=== PATIENT | female | born 1950 | race Caucasian/White ===

== ENCOUNTER 2017-09-04 17:04 | Inpatient (IN) ==
[2017-09-04] MEDS ORDERED: SODIUM CHLORIDE 0.9% 500 ML IV STA (17:41)
[2017-09-04] MEDS ORDERED: ALBUTEROL/IPRATROPIUM 3 ML NEB RESP TX STA (17:41)
[2017-09-04 17:58] LABS: INR 1.4; Partial Thromboplastin Time 35.2 SECS (0-40)
[2017-09-04 18:03] LABS: Basophils % 0.1 % (0.0-0.8); Eosinophils % 0.2 % (0.00-10.9); Hematocrit 19.3 VOL% (35.7-47.0); Hemoglobin 7.1 GM/DL (12.0-16.0); Immature Granulocytes % 0.8 %; Lymphocytes # 2.3 10*3/uL (1.4-4.0); Lymphocytes % 8.8 % (21.3-54.2); Mean Corpuscular HGB Conc 36.8 GM/DL (32-36); Mean Corpuscular Hemoglobin 35 PG (27-34); Mean Platelet Volume 12.9 FL (9.6-12.0); Monocytes # 1.4 10*3/uL (0.11-0.8); Monocytes % 5.3 % (1.7-12.7); NRBC # 0.03 10*3/uL; Neutrophils # 21.9 10*3/uL (1.4-7.4); Neutrophils % 84.8 % (38.7-73.9); Platelet Count 203 T/CUMM (130-400); Red Blood Count 2.01 MC/CUMM (3.8-5.5); Red Cell Distribution Width 22.7 % (9.3-17.3); White Blood Count 25.8 T/CUMM (4-12)
[2017-09-04] MEDS ORDERED: cefTRIAXone 1,000 MG in SODIUM CHLORIDE 0.9% 100 ML IV STA (18:04)
[2017-09-04 18:06] LABS: Ammonia 68 UMOL/L (11-32)
[2017-09-04 18:10] LABS: Lactic Acid 2.8 MMOL/L (0.4-2.0)
[2017-09-04 18:13] LABS: Alanine Aminotransferase 38 U/L (13-56); Albumin 1.6 G/DL (3.4-5.0); Alkaline Phosphatase 235 U/L (45-117); Aspartate Amino Transferase 235 U/L (0-37); Blood Urea Nitrogen 32 MG/DL (7-18); Calcium 7.6 MG/DL (8.5-10.1); Osmolality,Calculated 279.5 MOS/KG (273-304); Potassium 4.1 MMOL/L (3.5-5.1); Sodium 139 MMOL/L (136-145); Total Protein 5.6 G/DL (6.4-8.3)
[2017-09-04 18:16] LABS: ABG Base Excess 6.1 MMOL/L (-2.5-2.5); ABG HCO3 29.9 MMOL/L (20-26); ABG Oxygen Saturation 97.3 % (95-100); ABG PCO2 35.6 MM HG (35-48); ABG PO2 96.8 MM HG (80-95); ABG TCO2 26.1 MMOL/L (23-27)
[2017-09-04 18:20] LABS: Glucose 35 MG/DL (74-106)
[2017-09-04] MEDS ORDERED: DEXTROSE 50% 25 GM/50 ML VIAL IV STA (18:20)
[2017-09-04] MEDS ORDERED: DEXTROSE 50% 25 GM/50 ML SYRINGE IV ONE (18:21)
[2017-09-04] MEDS ORDERED: ACETAMINOPHEN 325 MG TABLET PO PRN (19:02)
[2017-09-04] MEDS ORDERED: ONDANSETRON 4 MG/2 ML VIAL IV PRN (19:02)
[2017-09-04] MEDS ORDERED: SODIUM CHLORIDE 0.9% 2,000 ML IV ONE (19:05)
[2017-09-04] MEDS ORDERED: BISACODYL 10 MG SUPP RECTAL STA (19:06)
[2017-09-04] MEDS ORDERED: GLUCAGON 1 MG VIAL IM PRN (19:06)
[2017-09-04 19:12] LABS: Band Neutrophils 1 % (0-10); Eosinophils 1 % (0-10); Lymphocytes 4 % (20-55); Platelet Estimate Normal; Segmented Neutrophils 89 % (50-85); Total Cells Counted 100
[2017-09-04 19:13] LABS: Acanthocytes Few; Anisocytosis 2+; Hypochromasia 2+; Macrocytosis 2+; Ovalocytes 1+; Target Cells 2+
[2017-09-04] MEDS ORDERED: AZTREONAM 1,000 MG VIAL ONE (21:53)
[2017-09-04] MEDS ORDERED: LEVOFLOXACIN INJ 150 ML IV ONE (21:53)
[2017-09-04] MEDS ORDERED: LEVOFLOXACIN INJ 750 MG in PREMIX 1 EACH IV ONE (22:00)
[2017-09-04] MEDS ORDERED: SODIUM CHLORIDE 0.9% IV SCH (22:15)
[2017-09-04] MEDS ORDERED: AZTREONAM IV SCH (22:15)
[2017-09-04] MEDS ORDERED: NOREPINEPHRINE 4 MG/4 ML VIAL IV ONE (23:53)
[2017-09-04] MEDS: NOREPINEPHRINE 8 MG in SODIUM CHLORIDE 0.9% 242 ML IV PRN (23:58)
[2017-09-05 00:05] LABS: Apearance,Urine CLOUDY (Clear); Bilirubin,Urine Negative (Negative); Blood, Urine Small mg/dL (Negative); Glucose,Urine (UA) Negative (Negative); Ketones,Urine Negative (Negative); Nitrite,Urine Negative (Negative); Protein,Urine 100 MG/DL; Squamous Epithelial Cell,Urine Few /HPF (0-10); Urine Color Yellow (Yellow); Urine Specific Gravity 1.013 (1.001-1.035); Urine Urobilinogen < 2.0 EU/DL (0.2-1.0); WBC,Urine 1855 /HPF (0-6)
[2017-09-05] MEDS: DEXTROSE 50% 25 GM/50 ML VIAL IV PRN ×5 (00:12→19:09)
[2017-09-05] MEDS ORDERED: PHENYLEPHRINE DRIP 40 MG/250 ML PREMIX IV ONE (03:36)
[2017-09-05] MEDS: PHENYLEPHRINE DRIP 40 MG/250 ML PREMIX IV PRN ×5 (03:44→23:28)
[2017-09-05] MEDS ORDERED: AZTREONAM 1,000 MG in SYRINGE 1 EACH IV SCH (06:00)
[2017-09-05 06:01] LABS: Basophils % 0.2 % (0.0-0.8); Eosinophils # 0.1 10*3/uL (0.0-0.87); Eosinophils % 0.4 % (0.00-10.9); Hematocrit 23.6 VOL% (35.7-47.0); Hemoglobin 8.4 GM/DL (12.0-16.0); Immature Granulocytes % 1.2 %; Immature Granulocytes Absolute 0.27 #; Lymphocytes # 1.9 10*3/uL (1.4-4.0); Lymphocytes % 7.9 % (21.3-54.2); Mean Corpuscular HGB Conc 35.6 GM/DL (32-36); Mean Corpuscular Hemoglobin 35 PG (27-34); Mean Corpuscular Volume 97.9 FL (87-102); Mean Platelet Volume 12.5 FL (9.6-12.0); Monocytes # 1.2 10*3/uL (0.11-0.8); Monocytes % 5.1 % (1.7-12.7); NRBC # 0.02 10*3/uL; Neutrophils % 85.2 % (38.7-73.9); Platelet Count 159 T/CUMM (130-400); Red Blood Count 2.41 MC/CUMM (3.8-5.5); Red Cell Distribution Width 22.5 % (9.3-17.3); White Blood Count 23.4 T/CUMM (4-12)
[2017-09-05 06:32] LABS: Band Neutrophils 19 % (0-10); Eosinophils 2 % (0-10); Lymphocytes 8 % (20-55); Nucleated Red Blood Cells 1 (0-5); Segmented Neutrophils 67 % (50-85); Total Cells Counted 100
[2017-09-05 06:33] LABS: Anisocytosis 2+; Poikilocytosis 2+; Target Cells 3+
[2017-09-05 06:34] LABS: Polychromasia 1+
[2017-09-05 06:36] LABS: Albumin 1.5 G/DL (3.4-5.0); Calcium 7.5 MG/DL (8.5-10.1); Osmolality,Calculated 284.4 MOS/KG (273-304); Potassium 3.4 MMOL/L (3.5-5.1); Total Protein 5.6 G/DL (6.4-8.3)
[2017-09-05] MEDS: NOREPINEPHRINE 8 MG in SODIUM CHLORIDE 0.9% 242 ML IV PRN ×3 (06:36→14:26)
[2017-09-05] MEDS: ENOXAPARIN 30 MG/0.3 ML SYRINGE SUBCUT SCH (09:33)
[2017-09-05] MEDS: DEXAMETHASONE 4 MG/1 ML VIAL IV SCH ×2 (10:40→20:37)
[2017-09-05] MEDS: LEVOTHYROXINE 75 MCG TABLET PO SCH (10:53)
[2017-09-05] MEDS: LEVOTHYROXINE 200 MCG TABLET PO SCH (10:53)
[2017-09-05] MEDS ORDERED: SODIUM CHLORIDE 0.9% 1,000 ML IV PRN (11:38)
[2017-09-05] MEDS: PANTOPRAZOLE 40 MG TABLET PO SCH (14:02)
[2017-09-05] MEDS: LIOTHYRONINE 25 MCG TABLET PO SCH (14:02)
[2017-09-05] MEDS: MEROPENEM 500 MG in SYRINGE 1 EACH IV SCH (18:19)
[2017-09-05] MEDS: NOREPINEPHRINE 16 MG in SODIUM CHLORIDE 0.9% 234 ML IV PRN (18:56)
[2017-09-05] MEDS: MIDODRINE 5 MG TABLET PO SCH ×2 (18:59→20:38)
[2017-09-05] MEDS: ATORVASTATIN 20 MG TABLET PO SCH (20:38)
[2017-09-06] MEDS: DEXTROSE 50% 25 GM/50 ML VIAL IV PRN ×2 (00:18→04:26)
[2017-09-06] MEDS: NOREPINEPHRINE 16 MG in SODIUM CHLORIDE 0.9% 234 ML IV PRN ×4 (01:15→23:56)
[2017-09-06] MEDS: PHENYLEPHRINE INJ 160 MG in SODIUM CHLORIDE 0.9% 234 ML IV PRN ×2 (02:44→17:37)
[2017-09-06] MEDS ORDERED: COSYNTROPIN 0.25 MG VIAL IV ONE (03:00)
[2017-09-06 04:01] LABS: Basophils % 0.1 % (0.0-0.8); Hematocrit 29.2 VOL% (35.7-47.0); Hemoglobin 10.3 GM/DL (12.0-16.0); Immature Granulocytes % 0.9 %; Immature Granulocytes Absolute 0.18 #; Lymphocytes # 1.3 10*3/uL (1.4-4.0); Lymphocytes % 5.9 % (21.3-54.2); Mean Corpuscular HGB Conc 35.3 GM/DL (32-36); Mean Corpuscular Hemoglobin 33 PG (27-34); Mean Corpuscular Volume 94.2 FL (87-102); Mean Platelet Volume 12.8 FL (9.6-12.0); Monocytes # 1.3 10*3/uL (0.11-0.8); Monocytes % 6.3 % (1.7-12.7); NRBC # 0.04 10*3/uL; Neutrophils # 18.3 10*3/uL (1.4-7.4); Neutrophils % 86.8 % (38.7-73.9); Platelet Count 140 T/CUMM (130-400); Red Cell Distribution Width 21.5 % (9.3-17.3); White Blood Count 21.1 T/CUMM (4-12)
[2017-09-06] MEDS: DEXAMETHASONE 4 MG/1 ML VIAL IV SCH ×3 (04:24→19:09)
[2017-09-06 04:34] LABS: Calcium 7.5 MG/DL (8.5-10.1); Osmolality,Calculated 276.5 MOS/KG (273-304); Potassium 3.3 MMOL/L (3.5-5.1)
[2017-09-06 05:40] LABS: Lymphocytes 7 % (20-55); Platelet Estimate Normal; Segmented Neutrophils 90 % (50-85); Total Cells Counted 100
[2017-09-06] MEDS: LEVOTHYROXINE 200 MCG TABLET PO SCH (06:23)
[2017-09-06] MEDS ORDERED: SODIUM CHLORIDE 0.9% 500 ML IV ONE (09:05)
[2017-09-06] MEDS: LIOTHYRONINE 25 MCG TABLET PO SCH (09:14)
[2017-09-06] MEDS: CITALOPRAM 20 MG TABLET PO SCH (09:14)
[2017-09-06] MEDS: MIDODRINE 5 MG TABLET PO SCH ×3 (09:14→20:13)
[2017-09-06] MEDS: PANTOPRAZOLE 40 MG TABLET PO SCH (09:15)
[2017-09-06] MEDS: ENOXAPARIN 30 MG/0.3 ML SYRINGE SUBCUT SCH (09:15)
[2017-09-06] MEDS: LEVOTHYROXINE 75 MCG TABLET PO SCH (09:15)
[2017-09-06] MEDS: MEROPENEM 500 MG in SYRINGE 1 EACH IV SCH (11:56)
[2017-09-06] MEDS: ATORVASTATIN 20 MG TABLET PO SCH (20:13)
[2017-09-06] MEDS: LEVOFLOXACIN INJ 500 MG in PREMIX 1 EACH IV SCH (20:13)
[2017-09-07] MEDS: DEXAMETHASONE 4 MG/1 ML VIAL IV SCH ×3 (01:48→18:47)
[2017-09-07] MEDS: LEVOTHYROXINE 75 MCG TABLET PO SCH (06:03)
[2017-09-07] MEDS: LEVOTHYROXINE 200 MCG TABLET PO SCH (06:04)
[2017-09-07] MEDS: NOREPINEPHRINE 16 MG in SODIUM CHLORIDE 0.9% 234 ML IV PRN ×3 (06:50→20:34)
[2017-09-07] MEDS: DEXTROSE 10% 1,000 ML IV SCH ×4 (08:52→22:46)
[2017-09-07 09:10] LABS: Basophils % 0.1 % (0.0-0.8); Hematocrit 28.5 VOL% (35.7-47.0); Immature Granulocytes % 0.6 %; Immature Granulocytes Absolute 0.12 #; Lymphocytes # 0.8 10*3/uL (1.4-4.0); Lymphocytes % 4.1 % (21.3-54.2); Mean Corpuscular HGB Conc 35.1 GM/DL (32-36); Mean Corpuscular Hemoglobin 33 PG (27-34); Mean Corpuscular Volume 93.8 FL (87-102); Mean Platelet Volume 12.8 FL (9.6-12.0); Monocytes # 0.9 10*3/uL (0.11-0.8); Monocytes % 4.9 % (1.7-12.7); NRBC # 0.03 10*3/uL; Neutrophils # 17.1 10*3/uL (1.4-7.4); Neutrophils % 90.3 % (38.7-73.9); Platelet Count 118 T/CUMM (130-400); Red Blood Count 3.04 MC/CUMM (3.8-5.5); Red Cell Distribution Width 22.3 % (9.3-17.3)
[2017-09-07 09:31] LABS: Calcium 7.1 MG/DL (8.5-10.1); Osmolality,Calculated 278.4 MOS/KG (273-304); Potassium 3.7 MMOL/L (3.5-5.1)
[2017-09-07 09:33] LABS: Hypochromasia 1+; Lymphocytes 3 % (20-55); Platelet Estimate Decreased; Segmented Neutrophils 92 % (50-85); Target Cells Few; Total Cells Counted 100
[2017-09-07] MEDS: CITALOPRAM 20 MG TABLET PO SCH (10:19)
[2017-09-07] MEDS: MIDODRINE 5 MG TABLET PO SCH ×3 (10:19→20:55)
[2017-09-07] MEDS: ACETAMINOPHEN 500 MG TABLET PO SCH (10:19)
[2017-09-07] MEDS: PANTOPRAZOLE 40 MG TABLET PO SCH (10:20)
[2017-09-07] MEDS: MEROPENEM 500 MG in SYRINGE 1 EACH IV SCH (10:20)
[2017-09-07] MEDS: ENOXAPARIN 30 MG/0.3 ML SYRINGE SUBCUT SCH (10:21)
[2017-09-07] MEDS: LIOTHYRONINE 25 MCG TABLET PO SCH (10:21)
[2017-09-07] MEDS: ALBUTEROL/IPRATROPIUM 3 ML NEB RESP TX SCH ×2 (11:40→19:57)
[2017-09-07] MEDS: PHENYLEPHRINE INJ 160 MG in SODIUM CHLORIDE 0.9% 234 ML IV PRN (15:19)
[2017-09-07] MEDS: ATORVASTATIN 20 MG TABLET PO SCH (20:55)
[2017-09-08] MEDS: ALBUTEROL/IPRATROPIUM 3 ML NEB RESP TX SCH ×4 (00:16→19:34)
[2017-09-08] MEDS: DEXAMETHASONE 4 MG/1 ML VIAL IV SCH ×3 (01:43→18:05)
[2017-09-08] MEDS: NOREPINEPHRINE 16 MG in SODIUM CHLORIDE 0.9% 234 ML IV PRN ×3 (03:04→18:09)
[2017-09-08] MEDS: DEXTROSE 10% 1,000 ML IV SCH ×4 (05:38→19:29)
[2017-09-08 05:49] LABS: Basophils % 0.2 % (0.0-0.8); Hematocrit 28.9 VOL% (35.7-47.0); Hemoglobin 10.4 GM/DL (12.0-16.0); Immature Granulocytes % 0.7 %; Immature Granulocytes Absolute 0.14 #; Lymphocytes # 0.6 10*3/uL (1.4-4.0); Lymphocytes % 3.1 % (21.3-54.2); Mean Corpuscular Hemoglobin 33 PG (27-34); Mean Corpuscular Volume 91.7 FL (87-102); Mean Platelet Volume 12.8 FL (9.6-12.0); Monocytes # 1.4 10*3/uL (0.11-0.8); Monocytes % 6.9 % (1.7-12.7); NRBC # 0.03 10*3/uL; Neutrophils # 17.6 10*3/uL (1.4-7.4); Neutrophils % 89.1 % (38.7-73.9); Platelet Count 111 T/CUMM (130-400); Red Blood Count 3.15 MC/CUMM (3.8-5.5); Red Cell Distribution Width 22.5 % (9.3-17.3); White Blood Count 19.8 T/CUMM (4-12)
[2017-09-08] MEDS: LEVOTHYROXINE 75 MCG TABLET PO SCH (06:07)
[2017-09-08] MEDS: LEVOTHYROXINE 200 MCG TABLET PO SCH (06:07)
[2017-09-08 06:19] LABS: Calcium 7.5 MG/DL (8.5-10.1); Osmolality,Calculated 278.7 MOS/KG (273-304); Potassium 3.6 MMOL/L (3.5-5.1)
[2017-09-08 06:29] LABS: Hypochromasia 1+; Lymphocytes 5 % (20-55); Ovalocytes Slight; Platelet Estimate Decreased; Segmented Neutrophils 88 % (50-85); Target Cells Few; Total Cells Counted 100
[2017-09-08] MEDS: MEROPENEM 500 MG in SYRINGE 1 EACH IV SCH (10:03)
[2017-09-08] MEDS: CITALOPRAM 20 MG TABLET PO SCH (10:04)
[2017-09-08] MEDS: LIOTHYRONINE 25 MCG TABLET PO SCH (10:04)
[2017-09-08] MEDS: PANTOPRAZOLE 40 MG TABLET PO SCH (10:04)
[2017-09-08] MEDS: ENOXAPARIN 30 MG/0.3 ML SYRINGE SUBCUT SCH (10:04)
[2017-09-08] MEDS: MIDODRINE 5 MG TABLET PO SCH ×3 (10:04→20:05)
[2017-09-08] MEDS ORDERED: SUCCINYLCHOLINE 200 MG/10 ML VIAL ONE (12:44)
[2017-09-08] MEDS ORDERED: PROPOFOL 1,000 MG/100 ML BOTTLE IV ONE (12:44)
[2017-09-08] MEDS ORDERED: DOPamine 0 MG/0 ML PREMIX IV ONE (12:54)
[2017-09-08] MEDS ORDERED: SODIUM CHLORIDE 0.9% 250 ML IV ONE (12:55)
[2017-09-08] MEDS ORDERED: AMIODARONE INJ 150 MG in DEXTROSE 5% 100 ML IV ONE ×3 (13:02→20:36)
[2017-09-08] MEDS: PROPOFOL 1,000 MG/100 ML BOTTLE IV SCH (13:10)
[2017-09-08 13:13] LABS: ABG Base Excess -0.9 MMOL/L (-2.5-2.5); ABG HCO3 23.7 MMOL/L (20-26); ABG Oxygen Saturation 99.3 % (95-100); ABG PCO2 33.7 MM HG (35-48); ABG PH 7.438 (7.35-7.45); ABG TCO2 20.7 MMOL/L (23-27)
[2017-09-08] MEDS ORDERED: GLUCAGON 1 MG VIAL IM PRN (13:39)
[2017-09-08] MEDS ORDERED: AMIODARONE INJ 150 MG in DEXTROSE 5% 100 ML IV SCH (14:00)
[2017-09-08] MEDS ORDERED: DIGOXIN 0.5 MG/2 ML AMP IV ONE ×2 (15:15→17:37)
[2017-09-08] MEDS ORDERED: SODIUM CHLORIDE 0.9% 500 ML IV ONE (19:27)
[2017-09-08] MEDS: LEVOFLOXACIN INJ 500 MG in PREMIX 1 EACH IV SCH (19:47)
[2017-09-08] MEDS ORDERED: fentaNYL 100 MCG/2 ML VIAL IV ONE (20:00)
[2017-09-08] MEDS: ATORVASTATIN 20 MG TABLET PO SCH (20:05)
[2017-09-08] MEDS ORDERED: ENOXAPARIN 100 MG/ML SYRINGE SUBCUT SCH (21:00)
[2017-09-08] MEDS: CARVEDILOL 6.25 MG TABLET PO SCH (21:21)
[2017-09-08] MEDS ORDERED: AMIODARONE INJ 450 MG in DEXTROSE 5% 241 ML IV SCH (21:34)
[2017-09-09] MEDS: DEXTROSE 10% 1,000 ML IV SCH ×4 (00:29→21:42)
[2017-09-09] MEDS: ALBUTEROL/IPRATROPIUM 3 ML NEB RESP TX SCH ×4 (01:13→19:40)
[2017-09-09] MEDS: DEXAMETHASONE 4 MG/1 ML VIAL IV SCH ×3 (02:44→18:05)
[2017-09-09] MEDS: PROPOFOL 1,000 MG/100 ML BOTTLE IV SCH ×3 (02:54→21:41)
[2017-09-09] MEDS: NOREPINEPHRINE 16 MG in SODIUM CHLORIDE 0.9% 234 ML IV PRN ×2 (02:55→15:49)
[2017-09-09] MEDS: AMIODARONE INJ 450 MG in DEXTROSE 5% 241 ML IV SCH ×2 (03:50→19:00)
[2017-09-09 04:27] LABS: ABG Base Excess -0.8 MMOL/L (-2.5-2.5); ABG HCO3 19.1 MMOL/L (20-26); ABG Oxygen Saturation 99.5 % (95-100); ABG PH 7.583 (7.35-7.45); ABG PO2 193.7 MM HG (80-95); ABG TCO2 19.7 MMOL/L (23-27); Allen Test Positive; Pt O2 Delivery Device Ventilator
[2017-09-09 04:45] LABS: ABG PCO2 20.7 MM HG (35-48)
[2017-09-09 05:33] LABS: Basophils % 0.1 % (0.0-0.8); Hematocrit 28.8 VOL% (35.7-47.0); Hemoglobin 10.5 GM/DL (12.0-16.0); Immature Granulocytes Absolute 0.21 #; Lymphocytes # 0.6 10*3/uL (1.4-4.0); Mean Corpuscular HGB Conc 36.5 GM/DL (32-36); Mean Corpuscular Hemoglobin 33 PG (27-34); Mean Corpuscular Volume 91.4 FL (87-102); Mean Platelet Volume 12.3 FL (9.6-12.0); Monocytes # 1.5 10*3/uL (0.11-0.8); Monocytes % 7.3 % (1.7-12.7); NRBC # 0.03 10*3/uL; Neutrophils # 18.3 10*3/uL (1.4-7.4); Neutrophils % 88.6 % (38.7-73.9); Platelet Count 92 T/CUMM (130-400); Red Blood Count 3.15 MC/CUMM (3.8-5.5); Red Cell Distribution Width 22.2 % (9.3-17.3); White Blood Count 20.7 T/CUMM (4-12)
[2017-09-09 05:53] LABS: Osmolality,Calculated 274.1 MOS/KG (273-304); Potassium 3.8 MMOL/L (3.5-5.1)
[2017-09-09 06:16] LABS: Band Neutrophils 1 % (0-10); Hypochromasia 1+; Lymphocytes 3 % (20-55); Segmented Neutrophils 94 % (50-85); Total Cells Counted 100
[2017-09-09 06:17] LABS: Anisocytosis 1+; Burr Cells Slight; Microcytosis 1+; Target Cells Few
[2017-09-09 06:18] LABS: Howell-Jolly Bodies Slight; Platelet Estimate Decreased
[2017-09-09] MEDS: LEVOTHYROXINE 75 MCG TABLET PO SCH (06:27)
[2017-09-09] MEDS: LEVOTHYROXINE 200 MCG TABLET PO SCH (06:27)
[2017-09-09] MEDS: AMIODARONE 200 MG TABLET PO SCH (09:29)
[2017-09-09] MEDS: CITALOPRAM 20 MG TABLET PO SCH (09:29)
[2017-09-09] MEDS: CARVEDILOL 6.25 MG TABLET PO SCH (09:29)
[2017-09-09] MEDS: LIOTHYRONINE 25 MCG TABLET PO SCH (09:30)
[2017-09-09] MEDS: PANTOPRAZOLE 40 MG TABLET PO SCH (09:32)
[2017-09-09] MEDS: MIDODRINE 5 MG TABLET PO SCH ×3 (09:32→21:40)
[2017-09-09] MEDS: MEROPENEM 500 MG in SYRINGE 1 EACH IV SCH (09:42)
[2017-09-09] MEDS: ENOXAPARIN 30 MG/0.3 ML SYRINGE SUBCUT SCH (14:50)
[2017-09-09] MEDS: PHENYLEPHRINE INJ 160 MG in SODIUM CHLORIDE 0.9% 234 ML IV PRN (15:51)
[2017-09-09] MEDS: ACETAMINOPHEN 500 MG TABLET PO SCH (18:05)
[2017-09-09] MEDS: ATORVASTATIN 20 MG TABLET PO SCH (21:40)
[2017-09-10] MEDS: ALBUTEROL/IPRATROPIUM 3 ML NEB RESP TX SCH ×4 (00:40→19:09)
[2017-09-10] MEDS: DEXAMETHASONE 4 MG/1 ML VIAL IV SCH ×3 (01:47→21:23)
[2017-09-10 03:17] LABS: ABG Base Excess -2.5 MMOL/L (-2.5-2.5); ABG HCO3 18.9 MMOL/L (20-26); ABG Oxygen Saturation 98.9 % (95-100); ABG PCO2 23.3 MM HG (35-48); ABG PH 7.528 (7.35-7.45); ABG PO2 138.9 MM HG (80-95); ABG TCO2 19.7 MMOL/L (23-27)
[2017-09-10] MEDS: DEXTROSE 10% 1,000 ML IV SCH (04:08)
[2017-09-10 05:27] LABS: Basophils % 0.1 % (0.0-0.8); Hematocrit 27.7 VOL% (35.7-47.0); Hemoglobin 9.9 GM/DL (12.0-16.0); Immature Granulocytes Absolute 0.21 #; Lymphocytes # 0.5 10*3/uL (1.4-4.0); Lymphocytes % 2.3 % (21.3-54.2); Mean Corpuscular HGB Conc 35.7 GM/DL (32-36); Mean Corpuscular Hemoglobin 33 PG (27-34); Mean Corpuscular Volume 93.6 FL (87-102); Mean Platelet Volume 12.7 FL (9.6-12.0); Monocytes # 1.5 10*3/uL (0.11-0.8); Monocytes % 7.1 % (1.7-12.7); Neutrophils # 19.1 10*3/uL (1.4-7.4); Neutrophils % 89.5 % (38.7-73.9); Platelet Count 88 T/CUMM (130-400); Red Blood Count 2.96 MC/CUMM (3.8-5.5); Red Cell Distribution Width 22.2 % (9.3-17.3); White Blood Count 21.4 T/CUMM (4-12)
[2017-09-10 05:43] LABS: Calcium 6.4 MG/DL (8.5-10.1); Osmolality,Calculated 269.7 MOS/KG (273-304); Potassium 3.7 MMOL/L (3.5-5.1)
[2017-09-10 06:01] LABS: Burr Cells Slight; Hypochromasia Slight; Lymphocytes 3 % (20-55); Microcytosis Slight; Ovalocytes Slight; Platelet Estimate Decreased; Segmented Neutrophils 94 % (50-85); Target Cells Few; Total Cells Counted 100
[2017-09-10] MEDS: LEVOTHYROXINE 200 MCG TABLET PO SCH (06:12)
[2017-09-10] MEDS: LEVOTHYROXINE 75 MCG TABLET PO SCH (06:12)
[2017-09-10] MEDS: PHENYLEPHRINE INJ 160 MG in SODIUM CHLORIDE 0.9% 234 ML IV PRN ×2 (06:13→21:24)
[2017-09-10] MEDS: NOREPINEPHRINE 16 MG in SODIUM CHLORIDE 0.9% 234 ML IV PRN (10:12)
[2017-09-10] MEDS ORDERED: ALBUMIN 25% 25 GM in PREMIX 1 EACH IV ONE (12:00)
[2017-09-10] MEDS ORDERED: MAGNESIUM SULF RIDER 2 GM in PREMIX 1 EACH IV ONE (13:31)
[2017-09-10] MEDS: CITALOPRAM 20 MG TABLET PO SCH (13:51)
[2017-09-10] MEDS: AMIODARONE 200 MG TABLET PO SCH (13:51)
[2017-09-10] MEDS: LIOTHYRONINE 25 MCG TABLET PO SCH (13:52)
[2017-09-10] MEDS: MIDODRINE 5 MG TABLET PO SCH ×3 (13:53→21:23)
[2017-09-10] MEDS: PANTOPRAZOLE 40 MG TABLET PO SCH (13:55)
[2017-09-10] MEDS: MEROPENEM 500 MG in SYRINGE 1 EACH IV SCH (13:58)
[2017-09-10] MEDS: ENOXAPARIN 30 MG/0.3 ML SYRINGE SUBCUT SCH (14:11)
[2017-09-10] MEDS: PROPOFOL 1,000 MG/100 ML BOTTLE IV SCH (16:31)
[2017-09-10] MEDS: LEVOFLOXACIN INJ 500 MG in PREMIX 1 EACH IV SCH (21:22)
[2017-09-10] MEDS: ATORVASTATIN 20 MG TABLET PO SCH (21:23)
[2017-09-11] MEDS: ALBUTEROL/IPRATROPIUM 3 ML NEB RESP TX SCH ×4 (00:38→20:29)
[2017-09-11] MEDS: NOREPINEPHRINE 16 MG in SODIUM CHLORIDE 0.9% 234 ML IV PRN ×3 (02:31→22:43)
[2017-09-11 03:35] LABS: ABG Base Excess -1.4 MMOL/L (-2.5-2.5); ABG HCO3 23.2 MMOL/L (20-26); ABG Oxygen Saturation 97.7 % (95-100); ABG PCO2 29.3 MM HG (35-48); ABG PH 7.468 (7.35-7.45); ABG PO2 96.7 MM HG (80-95); ABG TCO2 18.7 MMOL/L (23-27)
[2017-09-11] MEDS: DEXTROSE 50% 25 GM/50 ML VIAL IV PRN ×4 (04:08→19:51)
[2017-09-11 04:31] LABS: Basophils % 0.1 % (0.0-0.8); Hematocrit 26.4 VOL% (35.7-47.0); Hemoglobin 9.3 GM/DL (12.0-16.0); Immature Granulocytes Absolute 0.23 #; Lymphocytes # 0.4 10*3/uL (1.4-4.0); Lymphocytes % 1.6 % (21.3-54.2); Mean Corpuscular HGB Conc 35.2 GM/DL (32-36); Mean Corpuscular Hemoglobin 33 PG (27-34); Mean Corpuscular Volume 94.3 FL (87-102); Monocytes % 4.4 % (1.7-12.7); Neutrophils # 20.9 10*3/uL (1.4-7.4); Neutrophils % 92.9 % (38.7-73.9); Platelet Count 58 T/CUMM (130-400); Red Cell Distribution Width 22.7 % (9.3-17.3); White Blood Count 22.5 T/CUMM (4-12)
[2017-09-11] MEDS: DEXAMETHASONE 4 MG/1 ML VIAL IV SCH ×3 (04:35→20:39)
[2017-09-11] MEDS: PROPOFOL 1,000 MG/100 ML BOTTLE IV SCH ×2 (04:37→13:08)
[2017-09-11 04:52] LABS: Lymphocytes 1 % (20-55); Segmented Neutrophils 98 % (50-85); Total Cells Counted 100
[2017-09-11 04:53] LABS: Platelet Estimate Decreased; Target Cells Few
[2017-09-11 04:55] LABS: Burr Cells Few; Calcium 6.8 MG/DL (8.5-10.1); Osmolality,Calculated 270.7 MOS/KG (273-304); Potassium 3.8 MMOL/L (3.5-5.1)
[2017-09-11] MEDS: LEVOTHYROXINE 75 MCG TABLET PO SCH (06:06)
[2017-09-11] MEDS: LEVOTHYROXINE 200 MCG TABLET PO SCH (06:06)
[2017-09-11] MEDS: LIOTHYRONINE 25 MCG TABLET PO SCH (10:17)
[2017-09-11] MEDS: CITALOPRAM 20 MG TABLET PO SCH (10:18)
[2017-09-11] MEDS: MEROPENEM 500 MG in SYRINGE 1 EACH IV SCH (10:18)
[2017-09-11] MEDS: ACETAMINOPHEN 500 MG TABLET PO SCH (10:18)
[2017-09-11] MEDS: AMIODARONE 200 MG TABLET PO SCH (10:18)
[2017-09-11] MEDS: MIDODRINE 5 MG TABLET PO SCH ×3 (10:18→20:37)
[2017-09-11] MEDS: PANTOPRAZOLE 40 MG TABLET PO SCH (10:19)
[2017-09-11] MEDS: PHENYLEPHRINE INJ 160 MG in SODIUM CHLORIDE 0.9% 234 ML IV PRN (12:18)
[2017-09-11] MEDS: ENOXAPARIN 30 MG/0.3 ML SYRINGE SUBCUT SCH (13:05)
[2017-09-11] MEDS: ATORVASTATIN 20 MG TABLET PO SCH (20:37)
[2017-09-12] MEDS: ALBUTEROL/IPRATROPIUM 3 ML NEB RESP TX SCH ×4 (00:32→20:13)
[2017-09-12] MEDS: PROPOFOL 1,000 MG/100 ML BOTTLE IV SCH ×2 (02:06→12:53)
[2017-09-12] MEDS: PHENYLEPHRINE INJ 160 MG in SODIUM CHLORIDE 0.9% 234 ML IV PRN ×2 (03:31→17:34)
[2017-09-12 04:56] LABS: ABG Base Excess -3.7 MMOL/L (-2.5-2.5); ABG HCO3 21.4 MMOL/L (20-26); ABG Oxygen Saturation 98.5 % (95-100); ABG PCO2 23.6 MM HG (35-48); ABG PH 7.493 (7.35-7.45); ABG TCO2 16.1 MMOL/L (23-27); Allen Test Positive; Pt O2 Delivery Device Ventilator
[2017-09-12 05:57] LABS: Basophils % 0.1 % (0.0-0.8); Hematocrit 29.7 VOL% (35.7-47.0); Hemoglobin 10.4 GM/DL (12.0-16.0); Immature Granulocytes % 0.7 %; Immature Granulocytes Absolute 0.17 #; Lymphocytes # 0.4 10*3/uL (1.4-4.0); Lymphocytes % 1.6 % (21.3-54.2); Mean Corpuscular Hemoglobin 33 PG (27-34); Mean Corpuscular Volume 93.4 FL (87-102); Mean Platelet Volume 12.6 FL (9.6-12.0); Monocytes # 1.4 10*3/uL (0.11-0.8); Monocytes % 5.9 % (1.7-12.7); Neutrophils # 22.3 10*3/uL (1.4-7.4); Neutrophils % 91.7 % (38.7-73.9); Platelet Count 95 T/CUMM (130-400); Red Blood Count 3.18 MC/CUMM (3.8-5.5); Red Cell Distribution Width 22.5 % (9.3-17.3); White Blood Count 24.3 T/CUMM (4-12)
[2017-09-12 06:01] LABS: Calcium 7.1 MG/DL (8.5-10.1)
[2017-09-12 06:02] LABS: Osmolality,Calculated 269.5 MOS/KG (273-304); Potassium 4.3 MMOL/L (3.5-5.1)
[2017-09-12 06:20] LABS: Burr Cells Few; Lymphocytes 2 % (20-55); Segmented Neutrophils 96 % (50-85); Total Cells Counted 100
[2017-09-12 06:21] LABS: Hypochromasia Slight; Microcytosis 1+; Platelet Estimate Decreased; Target Cells Slight
[2017-09-12] MEDS: DEXAMETHASONE 4 MG/1 ML VIAL IV SCH ×2 (06:34→13:22)
[2017-09-12] MEDS: LEVOTHYROXINE 200 MCG TABLET PO SCH (06:57)
[2017-09-12] MEDS: LEVOTHYROXINE 75 MCG TABLET PO SCH (06:57)
[2017-09-12] MEDS ORDERED: LIDOCAINE 1% 20 ML VIAL MISC INJ ONE (07:30)
[2017-09-12] MEDS: NOREPINEPHRINE 16 MG in SODIUM CHLORIDE 0.9% 234 ML IV PRN ×2 (09:27→20:51)
[2017-09-12] MEDS: MEROPENEM 500 MG in SYRINGE 1 EACH IV SCH (10:11)
[2017-09-12] MEDS: AMIODARONE 200 MG TABLET PO SCH ×2 (10:12→20:51)
[2017-09-12] MEDS: CITALOPRAM 20 MG TABLET PO SCH (10:12)
[2017-09-12] MEDS: MIDODRINE 5 MG TABLET PO SCH ×3 (10:12→20:51)
[2017-09-12] MEDS: LIOTHYRONINE 25 MCG TABLET PO SCH (10:12)
[2017-09-12] MEDS: PANTOPRAZOLE 40 MG TABLET PO SCH (10:12)
[2017-09-12] MEDS ORDERED: ALBUMIN 25% 25 GM in PREMIX 1 EACH IV ONE (11:30)
[2017-09-12] MEDS: DEXTROSE 50% 25 GM/50 ML VIAL IV PRN ×2 (11:30→15:27)
[2017-09-12] MEDS ORDERED: AMIODARONE INJ 150 MG in DEXTROSE 5% 100 ML IV ONE ×2 (13:00→16:00)
[2017-09-12] MEDS ORDERED: SODIUM CHLORIDE 0.9% 100 ML IV ONE (13:13)
[2017-09-12] MEDS ORDERED: VANCOMYCIN INJ 750 MG in SODIUM CHLORIDE 0.9% 250 ML IV PRN (17:09)
[2017-09-12] MEDS ORDERED: CLINDAMYCIN INJ 300 MG in PREMIX 1 EACH IV SCH (18:00)
[2017-09-12] MEDS: ceFAZolin 1,000 MG in SYRINGE 1 EACH IV SCH (18:35)
[2017-09-12] MEDS ORDERED: ERTAPENEM 500 MG in SODIUM CHLORIDE 0.9% 100 ML IV SCH (20:00)
[2017-09-12] MEDS: ATORVASTATIN 20 MG TABLET PO SCH (20:51)
[2017-09-12] MEDS: LACTOBACILLUS RHAMNOSUS GG CAPSULE PER TUBE SCH (20:51)
[2017-09-12] MEDS: FLUCONAZOLE INJ 200 MG in PREMIX 1 EACH IV SCH (20:51)
[2017-09-12] MEDS ORDERED: VANCOMYCIN INJ 2,000 MG in SODIUM CHLORIDE 0.9% 500 ML IV ONE (22:00)
[2017-09-13] MEDS: DEXAMETHASONE 4 MG/1 ML VIAL IV SCH ×4 (00:23→21:30)
[2017-09-13] MEDS: ALBUTEROL/IPRATROPIUM 3 ML NEB RESP TX SCH ×4 (01:08→19:06)
[2017-09-13] MEDS: PROPOFOL 1,000 MG/100 ML BOTTLE IV SCH ×2 (03:16→17:08)
[2017-09-13 04:31] LABS: ABG Base Excess -3.2 MMOL/L (-2.5-2.5); ABG HCO3 18.7 MMOL/L (20-26); ABG Oxygen Saturation 97.5 % (95-100); ABG PCO2 23.7 MM HG (35-48); ABG PH 7.515 (7.35-7.45); ABG PO2 101.3 MM HG (80-95); ABG TCO2 19.4 MMOL/L (23-27); Allen Test Positive; Pt O2 Delivery Device Ventilator
[2017-09-13 05:06] LABS: Basophils % 0.1 % (0.0-0.8); Hematocrit 24.9 VOL% (35.7-47.0); Immature Granulocytes % 0.7 %; Immature Granulocytes Absolute 0.19 #; Lymphocytes # 0.3 10*3/uL (1.4-4.0); Lymphocytes % 1.2 % (21.3-54.2); Mean Corpuscular HGB Conc 36.1 GM/DL (32-36); Mean Corpuscular Hemoglobin 34 PG (27-34); Mean Corpuscular Volume 93.6 FL (87-102); Mean Platelet Volume 13.2 FL (9.6-12.0); Monocytes # 1.3 10*3/uL (0.11-0.8); Monocytes % 4.9 % (1.7-12.7); Neutrophils % 93.1 % (38.7-73.9); Platelet Count 82 T/CUMM (130-400); Red Blood Count 2.66 MC/CUMM (3.8-5.5); Red Cell Distribution Width 22.6 % (9.3-17.3); White Blood Count 25.8 T/CUMM (4-12)
[2017-09-13 05:29] LABS: Osmolality,Calculated 269.2 MOS/KG (273-304); Potassium 4.2 MMOL/L (3.5-5.1)
[2017-09-13 05:33] LABS: Band Neutrophils 2 % (0-10); Hypochromasia 1+; Lymphocytes 1 % (20-55); Ovalocytes Slight; Platelet Estimate Decreased; Segmented Neutrophils 91 % (50-85); Total Cells Counted 100
[2017-09-13 05:34] LABS: Microcytosis Slight
[2017-09-13] MEDS: DEXTROSE 50% 25 GM/50 ML VIAL IV PRN ×3 (05:34→21:35)
[2017-09-13] MEDS: LEVOTHYROXINE 200 MCG TABLET PO SCH (06:16)
[2017-09-13] MEDS: LEVOTHYROXINE 75 MCG TABLET PO SCH (06:16)
[2017-09-13] MEDS: NOREPINEPHRINE 16 MG in SODIUM CHLORIDE 0.9% 234 ML IV PRN ×2 (08:19→21:40)
[2017-09-13] MEDS: CITALOPRAM 20 MG TABLET PO SCH (09:45)
[2017-09-13] MEDS: LACTOBACILLUS RHAMNOSUS GG CAPSULE PER TUBE SCH ×2 (09:45→21:30)
[2017-09-13] MEDS: AMIODARONE 200 MG TABLET PO SCH ×2 (09:45→21:29)
[2017-09-13] MEDS: MIDODRINE 5 MG TABLET PO SCH ×3 (09:46→21:30)
[2017-09-13] MEDS: PANTOPRAZOLE 40 MG TABLET PO SCH (09:46)
[2017-09-13] MEDS: ACETAMINOPHEN 500 MG TABLET PO SCH (09:46)
[2017-09-13] MEDS: LIOTHYRONINE 25 MCG TABLET PO SCH (09:48)
[2017-09-13] MEDS: PHENYLEPHRINE INJ 160 MG in SODIUM CHLORIDE 0.9% 234 ML IV PRN (16:45)
[2017-09-13] MEDS: ceFAZolin 1,000 MG in SYRINGE 1 EACH IV SCH (17:50)
[2017-09-13] MEDS: FLUCONAZOLE INJ 200 MG in PREMIX 1 EACH IV SCH (21:30)
[2017-09-13] MEDS: ATORVASTATIN 20 MG TABLET PO SCH (21:30)
[2017-09-13] MEDS: ZINC OXIDE PASTE 113 GM TUBE TOP SCH (21:31)
[2017-09-14] MEDS: ALBUTEROL/IPRATROPIUM 3 ML NEB RESP TX SCH ×4 (01:29→23:22)
[2017-09-14 04:35] LABS: ABG Base Excess -5.4 MMOL/L (-2.5-2.5); ABG HCO3 16.9 MMOL/L (20-26); ABG Oxygen Saturation 97.4 % (95-100); ABG PCO2 23.4 MM HG (35-48); ABG PH 7.477 (7.35-7.45); ABG PO2 99.8 MM HG (80-95); ABG TCO2 17.6 MMOL/L (23-27)
[2017-09-14] MEDS: DEXTROSE 50% 25 GM/50 ML VIAL IV PRN ×2 (04:56→08:42)
[2017-09-14] MEDS ORDERED: HYDROCORTISONE 100 MG VIAL IV SCH (05:00)
[2017-09-14] MEDS: DEXTROSE 5% NACL 0.9% 1,000 ML IV SCH (05:04)
[2017-09-14] MEDS: LEVOTHYROXINE 75 MCG TABLET PO SCH (06:28)
[2017-09-14] MEDS: LEVOTHYROXINE 200 MCG TABLET PO SCH (06:28)
[2017-09-14] MEDS: PROPOFOL 1,000 MG/100 ML BOTTLE IV SCH ×2 (07:01→20:40)
[2017-09-14 07:14] LABS: Albumin 1.4 G/DL (3.4-5.0); Bilirubin,Total 1.2 MG/DL (0.2-1.0); Calcium 7.3 MG/DL (8.5-10.1); Total Protein 4.5 G/DL (6.4-8.3)
[2017-09-14 07:15] LABS: Osmolality,Calculated 268.5 MOS/KG (273-304); Potassium 4.4 MMOL/L (3.5-5.1)
[2017-09-14 07:20] LABS: Basophils % 0.1 % (0.0-0.8); Hematocrit 25.4 VOL% (35.7-47.0); Hemoglobin 8.9 GM/DL (12.0-16.0); Immature Granulocytes % 1.1 %; Immature Granulocytes Absolute 0.28 #; Lymphocytes # 0.4 10*3/uL (1.4-4.0); Lymphocytes % 1.8 % (21.3-54.2); Mean Corpuscular Hemoglobin 33 PG (27-34); Mean Corpuscular Volume 95.1 FL (87-102); Mean Platelet Volume 13.4 FL (9.6-12.0); Monocytes # 1.2 10*3/uL (0.11-0.8); Monocytes % 4.8 % (1.7-12.7); Neutrophils # 22.5 10*3/uL (1.4-7.4); Neutrophils % 92.2 % (38.7-73.9); Platelet Count 90 T/CUMM (130-400); Red Blood Count 2.67 MC/CUMM (3.8-5.5); Red Cell Distribution Width 23.3 % (9.3-17.3); White Blood Count 24.4 T/CUMM (4-12)
[2017-09-14] MEDS: PHENYLEPHRINE INJ 160 MG in SODIUM CHLORIDE 0.9% 234 ML IV PRN ×2 (08:13→17:31)
[2017-09-14 08:14] LABS: Band Neutrophils 2 % (0-10); Lymphocytes 1 % (20-55); Segmented Neutrophils 96 % (50-85); Total Cells Counted 100
[2017-09-14 08:16] LABS: Acanthocytes 2+; Ovalocytes Few
[2017-09-14 08:17] LABS: Anisocytosis 2+
[2017-09-14] MEDS: AMIODARONE 200 MG TABLET PO SCH ×2 (10:24→20:28)
[2017-09-14] MEDS: PANTOPRAZOLE 40 MG TABLET PO SCH (10:24)
[2017-09-14] MEDS: CITALOPRAM 20 MG TABLET PO SCH (10:24)
[2017-09-14] MEDS: MIDODRINE 5 MG TABLET PO SCH ×3 (10:24→20:29)
[2017-09-14] MEDS: LIOTHYRONINE 25 MCG TABLET PO SCH (10:25)
[2017-09-14] MEDS: LACTOBACILLUS RHAMNOSUS GG CAPSULE PER TUBE SCH ×2 (10:25→20:28)
[2017-09-14] MEDS: NOREPINEPHRINE 16 MG in SODIUM CHLORIDE 0.9% 234 ML IV PRN (13:01)
[2017-09-14] MEDS ORDERED: CALCIUM GLUCONATE 1,000 MG/10 ML VIAL IV ONE (14:00)
[2017-09-14] MEDS ORDERED: ALBUMIN 25% 25 GM in PREMIX 1 EACH IV ONE (14:00)
[2017-09-14] MEDS: HYDROCORTISONE 100 MG VIAL IV SCH ×2 (16:30→18:36)
[2017-09-14] MEDS: ZINC OXIDE PASTE 113 GM TUBE TOP SCH (16:31)
[2017-09-14] MEDS: ceFAZolin 1,000 MG in SYRINGE 1 EACH IV SCH (17:42)
[2017-09-14] MEDS ORDERED: VANCOMYCIN INJ 750 MG in SODIUM CHLORIDE 0.9% 250 ML IV ONE (18:00)
[2017-09-14 19:46] LABS: HIT Interpretation Negative (Negative)
[2017-09-14 19:59] LABS: Hepatitis B Surface Ab Result Negative
[2017-09-14] MEDS: ATORVASTATIN 20 MG TABLET PO SCH (20:29)
[2017-09-14] MEDS: FLUCONAZOLE INJ 200 MG in PREMIX 1 EACH IV SCH (20:29)
[2017-09-15] MEDS: PHENYLEPHRINE INJ 160 MG in SODIUM CHLORIDE 0.9% 234 ML IV PRN ×3 (01:46→18:12)
[2017-09-15] MEDS: NOREPINEPHRINE 16 MG in SODIUM CHLORIDE 0.9% 234 ML IV PRN (01:46)
[2017-09-15] MEDS: ZINC OXIDE PASTE 113 GM TUBE TOP SCH ×3 (03:50→20:22)
[2017-09-15 03:52] LABS: Basophils % 0.1 % (0.0-0.8); Hematocrit 21.8 VOL% (35.7-47.0); Hemoglobin 7.7 GM/DL (12.0-16.0); Immature Granulocytes % 0.5 %; Lymphocytes # 0.3 10*3/uL (1.4-4.0); Lymphocytes % 1.6 % (21.3-54.2); Mean Corpuscular HGB Conc 35.3 GM/DL (32-36); Mean Corpuscular Hemoglobin 33 PG (27-34); Mean Corpuscular Volume 94.4 FL (87-102); Mean Platelet Volume 13.7 FL (9.6-12.0); Monocytes # 0.3 10*3/uL (0.11-0.8); Monocytes % 1.8 % (1.7-12.7); NRBC # 0.02 10*3/uL; Neutrophils # 18.1 10*3/uL (1.4-7.4); Platelet Count 75 T/CUMM (130-400); Red Blood Count 2.31 MC/CUMM (3.8-5.5); Red Cell Distribution Width 23.2 % (9.3-17.3); White Blood Count 18.9 T/CUMM (4-12)
[2017-09-15 03:55] LABS: ABG Base Excess -3.9 MMOL/L (-2.5-2.5); ABG HCO3 18.7 MMOL/L (20-26); ABG Oxygen Saturation 96.8 % (95-100); ABG PCO2 24.9 MM HG (35-48); ABG PH 7.493 (7.35-7.45); ABG PO2 92.8 MM HG (80-95); ABG TCO2 19.4 MMOL/L (23-27)
[2017-09-15] MEDS: HYDROCORTISONE 100 MG VIAL IV SCH ×3 (04:16→18:57)
[2017-09-15 04:19] LABS: Bilirubin,Total 1.5 MG/DL (0.2-1.0); Calcium 7.5 MG/DL (8.5-10.1); Osmolality,Calculated 271.1 MOS/KG (273-304); Total Protein 4.6 G/DL (6.4-8.3)
[2017-09-15 04:23] LABS: Band Neutrophils 12 % (0-10); Nucleated Red Blood Cells 1 (0-5); Segmented Neutrophils 86 % (50-85); Total Cells Counted 100
[2017-09-15 04:24] LABS: Acanthocytes 1+; Anisocytosis 1+; Poikilocytosis 2+; Target Cells 1+
[2017-09-15 04:25] LABS: Polychromasia Slight
[2017-09-15] MEDS: DEXTROSE 5% NACL 0.9% 1,000 ML IV SCH (06:08)
[2017-09-15] MEDS: LEVOTHYROXINE 75 MCG TABLET PO SCH (06:08)
[2017-09-15] MEDS: LEVOTHYROXINE 200 MCG TABLET PO SCH (06:08)
[2017-09-15] MEDS: ALBUTEROL/IPRATROPIUM 3 ML NEB RESP TX SCH ×4 (07:50→19:41)
[2017-09-15] MEDS: DEXTROSE 50% 25 GM/50 ML VIAL IV PRN (08:25)
[2017-09-15] MEDS: MIDODRINE 5 MG TABLET PO SCH ×3 (09:40→20:21)
[2017-09-15] MEDS: AMIODARONE 200 MG TABLET PO SCH ×2 (09:40→20:21)
[2017-09-15] MEDS: LACTOBACILLUS RHAMNOSUS GG CAPSULE PER TUBE SCH ×2 (09:40→20:22)
[2017-09-15] MEDS: CITALOPRAM 20 MG TABLET PO SCH (09:40)
[2017-09-15] MEDS: LIOTHYRONINE 25 MCG TABLET PO SCH (09:50)
[2017-09-15] MEDS: DEXTROSE 10% 1,000 ML IV SCH ×2 (12:00→21:57)
[2017-09-15] MEDS: ceFAZolin 1,000 MG in SYRINGE 1 EACH IV SCH (17:55)
[2017-09-15] MEDS: FAMOTIDINE 20 MG TABLET PO SCH (20:21)
[2017-09-15] MEDS: ATORVASTATIN 20 MG TABLET PO SCH (20:22)
[2017-09-15] MEDS: FLUCONAZOLE INJ 200 MG in PREMIX 1 EACH IV SCH (20:23)
[2017-09-16] MEDS: ALBUTEROL/IPRATROPIUM 3 ML NEB RESP TX SCH ×4 (01:40→19:14)
[2017-09-16 03:42] LABS: ABG Base Excess -18.2 MMOL/L (-2.5-2.5); ABG HCO3 7.9 MMOL/L (20-26); ABG Oxygen Saturation 92.9 % (95-100); ABG PO2 87.5 MM HG (80-95); ABG TCO2 8.6 MMOL/L (23-27); Pt O2 Delivery Device Ventilator
[2017-09-16 03:47] LABS: ABG PH 7.206 (7.35-7.45)
[2017-09-16 03:48] LABS: ABG PCO2 20.5 MM HG (35-48)
[2017-09-16] MEDS ORDERED: SODIUM BICARBONATE 50 MEQ/50 ML SYRINGE IV ONE ×3 (04:05→11:51)
[2017-09-16] MEDS: DEXTROSE 50% 25 GM/50 ML VIAL IV PRN ×2 (04:31→17:05)
[2017-09-16] MEDS: HYDROCORTISONE 100 MG VIAL IV SCH ×3 (04:32→20:17)
[2017-09-16 04:36] LABS: Basophils % 0.2 % (0.0-0.8); Hematocrit 26.2 VOL% (35.7-47.0); Immature Granulocytes % 0.4 %; Immature Granulocytes Absolute 0.07 #; Lymphocytes # 0.4 10*3/uL (1.4-4.0); Lymphocytes % 2.6 % (21.3-54.2); Mean Corpuscular HGB Conc 34.4 GM/DL (32-36); Mean Corpuscular Hemoglobin 34 PG (27-34); Mean Corpuscular Volume 97.8 FL (87-102); Mean Platelet Volume 12.5 FL (9.6-12.0); Monocytes # 0.3 10*3/uL (0.11-0.8); Monocytes % 1.7 % (1.7-12.7); NRBC # 0.11 10*3/uL; Neutrophils # 15.3 10*3/uL (1.4-7.4); Neutrophils % 95.1 % (38.7-73.9); Red Blood Count 2.68 MC/CUMM (3.8-5.5); Red Cell Distribution Width 25.4 % (9.3-17.3); White Blood Count 16.1 T/CUMM (4-12)
[2017-09-16 04:40] LABS: Platelet Count 57 T/CUMM (130-400)
[2017-09-16 04:50] LABS: Calcium 7.4 MG/DL (8.5-10.1); Free T4 (Free Thyroxine) 0.47 NG/DL (0.76-1.46); Osmolality,Calculated 269.4 MOS/KG (273-304); Potassium 4.2 MMOL/L (3.5-5.1)
[2017-09-16 05:29] LABS: Band Neutrophils 1 % (0-10); Burr Cells Slight; Hypochromasia Slight; Lymphocytes 1 % (20-55); Ovalocytes Slight; Platelet Estimate Decreased; Segmented Neutrophils 97 % (50-85); Total Cells Counted 100
[2017-09-16 05:30] LABS: Microcytosis Slight
[2017-09-16] MEDS ORDERED: LEVOTHYROXINE 100 MCG VIAL IV SCH (07:00)
[2017-09-16] MEDS: DEXTROSE 10% 1,000 ML IV SCH (08:16)
[2017-09-16] MEDS: NOREPINEPHRINE 16 MG in SODIUM CHLORIDE 0.9% 234 ML IV PRN ×2 (08:17→16:00)
[2017-09-16] MEDS: PHENYLEPHRINE INJ 160 MG in SODIUM CHLORIDE 0.9% 234 ML IV PRN ×2 (08:18→18:26)
[2017-09-16] MEDS: PROPOFOL 1,000 MG/100 ML BOTTLE IV SCH ×2 (09:56→13:27)
[2017-09-16] MEDS: CITALOPRAM 20 MG TABLET PO SCH (09:57)
[2017-09-16] MEDS: LIOTHYRONINE 25 MCG TABLET PO SCH (09:57)
[2017-09-16] MEDS: AMIODARONE 200 MG TABLET PO SCH ×2 (09:57→20:19)
[2017-09-16] MEDS: LACTOBACILLUS RHAMNOSUS GG CAPSULE PER TUBE SCH ×2 (09:57→20:18)
[2017-09-16] MEDS: MIDODRINE 5 MG TABLET PO SCH ×3 (09:57→20:17)
[2017-09-16] MEDS: ZINC OXIDE PASTE 113 GM TUBE TOP SCH ×2 (11:58→20:18)
[2017-09-16 13:01] VITALS: BP 69/44
[2017-09-16] MEDS ORDERED: MEROPENEM 1,000 MG in SYRINGE 1 EACH IV SCH (14:30)
[2017-09-16] MEDS: DEXTROSE 5% NACL 0.9% 1,000 ML IV SCH (19:29)
[2017-09-16] MEDS: ATORVASTATIN 20 MG TABLET PO SCH (20:18)
[2017-09-16] MEDS: FAMOTIDINE 20 MG TABLET PO SCH (20:18)
[2017-09-16] MEDS: FLUCONAZOLE INJ 200 MG in PREMIX 1 EACH IV SCH (20:19)
== END 2017-09-16 21:30 | disposition expired | DRG 870 ==
LOC: N.ED 17:04 → SUATTDRO 18:36 → N.EDINP 18:36 → N.CC 23:01
PROVIDERS: ADMIT Internal Medicine; ATTEND Family Medicine